=== PATIENT | female | born 1930 | race Caucasian/White ===

== ENCOUNTER 2019-09-17 07:32 | Day surgery (SDC) | payer MEDICARE, BC ==
[2019-09-17] MEDS ORDERED: Lidocaine 1% PF 2 ML SDV INJECT ONE (07:33)
[2019-09-17] MEDS ORDERED: Propofol 200 MG/20 ML SDV IV ONE (07:33)
[2019-09-17] MEDS ORDERED: Sodium Chloride 0.9% 10 ML Syringe FLUSH PRN (07:45)
[2019-09-17] MEDS ORDERED: Lactated Ringers 1,000 ML IV SCH (07:45)
--- NOTE | 2019-09-17 09:47 | PCM.HPR ---
H & P Addendum review - H & P Addendum Review Date of Original H & P: 09/12/19 Date Reviewed: 09/17/19 Time Reviewed: 09:00 Patient was Examined: No Changes
--- NOTE | 2019-09-17 10:06 | OR ---
DATE OF OPERATION: 09/17/2019 SURGEON: Basil Resendiz MD PREOPERATIVE DIAGNOSES: 1. Right colon mass. 2. Anemia. POSTOPERATIVE DIAGNOSES: 1. Right colon mass. 2. Anemia. 3. Sigmoid diverticulosis. PROCEDURE: Incomplete colonoscopy to the sigmoid colon. ANESTHESIA: IV sedation. PROCEDURE IN DETAIL: The patient was brought to the procedure room, where she was placed on her left side and IV sedation administered. Digital rectal exam was performed, which was normal. The colonoscope was inserted and advanced into the distal sigmoid colon without difficulty. At that time, significant curvature and immobility of the colon prevented me from getting around the loops. Diverticulosis was noted despite pressure on the abdomen and changing to the supine position, I was unable to pass the scope past 40 cm. There was some bloody mucus in the lumen up to that point, which is coming from the right colon most likely. The patient did tolerate this well. Air was removed and the scope withdrawn. She returned to recovery in stable condition. I will discuss the findings with the patient's family. 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 /[id number] JACKI/DAMIAN
[2019-09-17 10:41] VITALS: BP 168/90; PULSE 113
== END 2019-09-17 10:45 | disposition home or self-care (01) ==
LOC: FB.SDS 07:32
PROVIDERS: ATTEND Surgery
DX: K63.89 Other specified diseases of intestine (principal); D64.9 Anemia, unspecified; K57.30 Diverticulosis of large intestine without perforation or abscess without bleeding; K21.9 Gastro-esophageal reflux disease without esophagitis; M47.812 Spondylosis without myelopathy or radiculopathy, cervical region; I10 Essential (primary) hypertension; M19.011 Primary osteoarthritis, right shoulder; Z88.6 Allergy status to analgesic agent; Z88.5 Allergy status to narcotic agent; Z91.041 Radiographic dye allergy status; Z88.8 Allergy status to other drugs, medicaments and biological substances; Z79.899 Other long term (current) drug therapy; Z79.82 Long term (current) use of aspirin
CPT/HCPCS: 00812; 45330; J2001; J2704; J7120